=== PATIENT | male | born 1955 | race Caucasian/White ===

== ENCOUNTER 2020-09-20 14:29 | Emergency (ER) | payer OTHER ==
[~2020-09-20] VITALS: Ht 182.9 cm; Wt 89.4 kg
[2020-09-20 15:15] VITALS: Ht 182.9 cm; Wt 89.4 kg
[2020-09-20] MEDS ORDERED: IBU600 M2 PO (16:39)
[2020-09-20] MEDS ORDERED: ROBAXIN-750750 MG PO (16:39)
[2020-09-20 17:41] VITALS: BP 110/68
== END 2020-09-20 17:41 | disposition home or self-care (01) ==
LOC: ED 14:29
DX: M54.42 Lumbago with sciatica, left side (principal); I10 Essential (primary) hypertension
CPT/HCPCS: J1885